=== PATIENT | male | born 2005 | race Caucasian/White ===

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

== ENCOUNTER 2025-02-06 12:25 | Outpatient (RCR) | payer MEDICAID, SELFPAY | END 2025-02-11 23:59 | disposition home or self-care (01) | LOC: SPT 12:25 | PROVIDERS: Visit Provider Orthopaedic Surgery Orthopaedic Surgery of the Spine | DX: M40.05 Postural kyphosis, thoracolumbar region (principal); R53.1 Weakness | CPT/HCPCS: 97161 ==

== ENCOUNTER 2025-02-12 05:00 | Outpatient (RCR) | payer MEDICAID, SELFPAY | END 2025-03-14 23:59 | disposition home or self-care (01) | LOC: SPT 05:00 | PROVIDERS: Visit Provider Orthopaedic Surgery Orthopaedic Surgery of the Spine | DX: M40.05 Postural kyphosis, thoracolumbar region (principal); R53.1 Weakness | CPT/HCPCS: 97110; 97150 ==

== ENCOUNTER 2025-03-15 05:00 | Outpatient (RCR) | payer MEDICAID, SELFPAY | END 2025-04-03 09:05 | disposition home or self-care (01) | LOC: SPT 05:00 | PROVIDERS: PCP Family Medicine; Visit Provider Orthopaedic Surgery Orthopaedic Surgery of the Spine | DX: M40.05 Postural kyphosis, thoracolumbar region (principal) | CPT/HCPCS: 97110 ==

== ENCOUNTER 2025-03-19 09:23 | Outpatient (CLI) | payer MEDICAID, SELFPAY ==
--- NOTE | 2025-03-19 09:28 | CT_ITS ---
WS: [id number] CT THORACIC SPINE HISTORY: KYPHOSIS TECHNIQUE: Contiguous 2.5 mm axial images are reviewed to thoracic spine. Images are reformatted in sagittal and coronal planes. All CT scans at [facility] use at least one of these dose optimization techniques: automated exposure control; mA and/or kV adjustment per patient size (includes targeted exams where dose is matched to clinical indication); or iterative reconstruction. DLP: 547.01 mGy.cm COMPARISON: MRI 03/19/2025 Mild straightening and curvature of the thoracic spine. Slight focal kyphosis near the thoracolumbar junction. There is a long RIGHT curvature of the thoracic spine. Vertebral body complement appears normal. No fractures. Facets are normally aligned. No bone destruction. Paravertebral soft tissues are normal. Visualized ribs are appropriate. CT/CT thoracic spin wo con* [id number] IMPRESSION: 1. Very mild straightening and RIGHT curvature thoracic spine. 2. No osseous abnormalities.
--- NOTE | 2025-03-19 09:28 | CT_ITS ---
WS: [id number] CT LUMBAR SPINE, noncontrast. HISTORY: KYPHOSIS/SCOLIOSIS SURGICAL PLANNING TECHNIQUE: Contiguous 2.0 mm axial imaging are performed. Sagittal and coronal reformats are submitted and reviewed. All CT scans at [facility] use at least one of these dose optimization techniques: automated exposure control; mA and/or kV adjustment per patient size (includes targeted exams where dose is matched to clinical indication); or iterative reconstruction. IV contrast: None DLP: 320.95 mGy.cm COMPARISON: None available. No obvious scoliosis of the lumbar spine. Very slight straightening of the normal lumbar lordosis. 2 mm retrolisthesis of L3 and L4. Fractures. No developmental vertebral body abnormality. Schmorl's nodes defects at L3. L1-2: Normal. L2-3: Normal. L3-4: Mild disc bulging. Mild effacement of ventral CSF and narrowing of the subarticular recesses. L4-5: Annular disc bulging. Disc contacts the ventral thecal sac extends into the subarticular recesses. Mild central, subarticular recess and bilateral foraminal stenosis. Effacement of fat in the foramen. L5-S1: Mild annular disc bulging. Effacement of fat in the foramina with bilateral foraminal stenosis. Visualized retroperitoneum is normal. CT/CT lumbar spine wo con* [id number] IMPRESSION: 1. Bilateral foraminal stenosis at L4-5 and L5-S1. 2. Mild subarticular recess stenosis at L3-4 and L4-5.
--- NOTE | 2025-03-19 09:28 | MR_ITS ---
WS: [id number] MRI LUMBAR SPINE NONCONTRAST HISTORY: KYPHOSIS,SPINAL REGION COMPARISON: None available. TECHNIQUE: Sagittal and axial multisequence imaging is submitted. Very mild straightening of the normal lumbar lordosis. Schmorl's node defect superior endplate of L3. No marrow edema or fractures. Disc spaces and vertebral body heights are well-preserved. Conus terminates normally at L1-2 disc level. L1-L2: Normal. L2-L3: Very mild encroachment upon the RIGHT subarticular recess. No significant stenosis. L3-L4: Mild annular disc bulging with flattening the ventral thecal sac and mild encroachment upon the subarticular recesses. Mild stenosis RIGHT subarticular recess with encroachment upon the traversing RIGHT L4 nerve root. Mild to moderate bilateral foraminal stenosis. L4-L5: Mild annular disc bulging encroaching upon the ventral thecal sac. Moderate to severe bilateral foraminal stenosis, LEFT greater than RIGHT. L5-S1: No central stenosis. Moderate to severe bilateral foraminal stenosis. MR/MR lumbar spine wo con* [id number] IMPRESSION: 1. No high-grade central stenosis. 2. L3 Schmorl's node defect. 3. Moderate to severe bilateral foraminal stenosis at L4-5 and L5-S1. No centr al stenosis. 4. Mild to moderate bilateral foraminal stenosis at L3-4. RIGHT subarticular r ecess encroachment upon the traversing RIGHT L4 nerve root by disc disease.
--- NOTE | 2025-03-19 09:28 | MR_ITS ---
WS: [id number] MRI THORACIC SPINE noncontrast HISTORY: KYPHOSIS,SPINAL REGION COMPARISON: CT 03/19/2025 TECHNIQUE: Multiplanar sequences are performed in sagittal and axial planes. Mild straightening of the normal thoracic kyphosis. Mild RIGHT curvature of the upper thoracic spine. Otherwise posterior alignment is normal. No marrow edema or fracture. No developmental anomalies. Signal within the cord is normal. No disc protrusions or foraminal stenosis. T1-2: Normal. T2-3: Normal. T3-4: Normal. T4-5: Normal. T5-6: Normal. T6-7: Normal. T7-8: Normal. T8-9: Normal. T9-10: Very mild RIGHT foraminal narrowing which is probably related to the scoliosis. T10-11: Mild foraminal narrowing. T11-12: No stenosis. T12-L1: Very mild annular disc bulging encroaching upon the ventral thecal sac but no stenosis. MR/MR thoracic spin wo con* [id number] IMPRESSION: 1. Very slight RIGHT curvature of the upper thoracic spine. 2. No signal abnormality within the vertebral bodies or cord. 3. Very mild disc bulging at T11-12. No central stenosis.
--- NOTE | 2025-03-19 09:28 | MR_ITS ---
WS: [id number] MRI CERVICAL SPINE NONCONTRAST HISTORY: KYPHOSIS,SPINAL REGION COMPARISON: Cervical spine radiographs 04/24/2022 Technique: Multiplanar, multisequence noncontrast imaging of the cervical spine. Very mild straightening of the normal cervical lordosis may in part be positional. Very minimal curvature of the cervical spine. Signal within the cervical cord is normal. Visualized posterior fossa is unremarkable. No segmentation anomalies. Craniocervical junction, C1 and C2 relationship, odontoid process and soft tissues are normal. C2-C3: Very small foraminal osteophytes with no stenosis. C3-C4: Normal. C4-C5: Normal. C5-C6: Very shallow LEFT paracentral disc protrusion. No cord contact. C6-C7: Normal. C7-T1: Normal. Paraspinal soft tissue are normal. MR/MR cervical spin wo con* [id number] IMPRESSION: 1. Very minimal curvature of the cervical spine. 2. No segmentation anomalies. 3. Very shallow LEFT paracentral disc protrusion at C5-6. 4. Normal signal in the cord.
== END 2025-03-19 09:24 | disposition home or self-care (01) ==
LOC: RAD 09:24
PROVIDERS: PCP Family Medicine; Visit Provider Orthopaedic Surgery Orthopaedic Surgery of the Spine
DX: M40.209 Unspecified kyphosis, site unspecified (principal); M43.8X4 Other specified deforming dorsopathies, thoracic region; M51.35 Other intervertebral disc degeneration, thoracolumbar region; M51.46 Schmorl's nodes, lumbar region; M48.061 Spinal stenosis, lumbar region without neurogenic claudication; M48.07 Spinal stenosis, lumbosacral region; M51.369 Other intervertebral disc degeneration, lumbar region without mention of lumbar back pain or lower extremity pain; R93.7 Abnormal findings on diagnostic imaging of other parts of musculoskeletal system; M51.379 Other intervertebral disc degeneration, lumbosacral region without mention of lumbar back pain or lower extremity pain
CPT/HCPCS: 72128; 72131; 72141; 72146; 72148

== ENCOUNTER 2025-05-11 12:38 | Emergency (ER) | payer MEDICAID, SELFPAY ==
--- OUTSIDE RECORDS SUMMARY | 2011-11-03 03:15 | XMS_ITS | Continuity of Care Document ---
Author Organization [facility] Address [address] [place] [address] Phone Care Team Providers Care Bit Tapper Name Role Phone Lou Saavedra DO Unavailable Unavailable Medications Medication Instructions Dosage Effective Dates (start - stop) Status Comments risperidone 0.5 mg Tab take 1 Tablet (0.5MG) by oral route 2 times every day 0.5 MG - Active clonidine 0.1 mg Tab take 0.5 tablet (0.05MG) by oral route every day at HS 0.05 MG - Active Procedures Procedure Date OFFICE/OUTPATIENT VISIT, EST URINALYSIS, AUTO, W/O SCOPE OBSERV/HOSP SAME DATE PREV VISIT, EST, AGE 5-11 OFFICE/OUTPATIENT VISIT, EST STREP A ASSAY W/OPTIC OFFICE/OUTPATIENT VISIT, EST PREV VISIT, EST, AGE 5-11 STREP A ASSAY W/OPTIC OFFICE/OUTPATIENT VISIT, EST STREP A ASSAY W/OPTIC OFFICE/OUTPATIENT VISIT, EST OFFICE/OUTPATIENT VISIT, EST OFFICE/OUTPATIENT VISIT, EST OFFICE/OUTPATIENT VISIT, EST OFFICE/OUTPATIENT VISIT, EST OFFICE/OUTPATIENT VISIT, EST OFFICE/OUTPATIENT VISIT, EST OFFICE/OUTPATIENT VISIT, EST PREV VISIT, EST, AGE 5-11 HEP A VACC, PED/ADOL, 2 DOSE PNEUMOCOCCAL VACC, 13 GAVIN IM OFFICE/OUTPATIENT VISIT, EST STREP A ASSAY W/OPTIC OFFICE/OUTPATIENT VISIT, EST OFFICE/OUTPATIENT VISIT, EST OFFICE/OUTPATIENT VISIT, EST OFFICE/OUTPATIENT VISIT, EST OFFICE/OUTPATIENT VISIT, EST OFFICE/OUTPATIENT VISIT, EST PREV VISIT, EST, AGE 1-4 MMR VACCINE, SC CHICKEN POX VACCINE, ND DTAP-IPV VACC 4-6 YR IM OFFICE/OUTPATIENT VISIT, EST Results Test Name Date and Time Measure Units Reference Range Abnormal Flag Status Comments Panel Description: Urine Culture, Routine Final Urine Culture, Routine 2 20:46:00 Final report Final [facility] Result 1 2 20:46:00 No growth Final [facility] () Advance Directives Directive Yes / No Effective Date File Name Resuscitation Not Answered N/A N/A Life Support Not Answered N/A N/A Intubation Not Answered N/A N/A Antibiotics Not Answered N/A N/A IV Fluid Support Not Answered N/A N/A Tube Feed Not Answered N/A N/A Other Directive N/A N/A WARNING:The information contained in this section is historical and is provided for information only and does not constitute a legal document or any assurance that the information is still accurate. Please verify the information with the coronel of the legal document before using it for clinical purposes. Encounters Encounter Description Practice Location Reason(s) For Visit Diagnoses Date Provider Providers Copied on Encounter OFFICE/OUTPA TIENT VISIT, EST [facility], [address] [place] [address], [id number], [place] tel:[phone] Pediatrics urinary burning (chief complaint) Painful Urination 0 2 Saavedrajonh Blake. [address] [place], [id number] . tel: [phone] OBSERV/HOSP SAME DATE [facility], [address] [place] [address], [id number], [place] tel:[phone] [facility] No Information 1 Saavedrajonh Blake. [address] [place], [id number] . tel: [phone] PREV VISIT, EST, AGE 5-11 [facility], [address] [place] [address], [id number], [place] tel:[phone] Pediatrics well visit (chief complaint) Well Child 1 Saavedrajonh Blake. [address] [place], [id number] . tel: [phone] OFFICE/OUTPA TIENT VISIT, EST [facility], [address] [place] [address], [id number], [place] tel:[phone] Pediatrics med f/u (chief complaint) ODD 1 Saavedrajonh Blake. [address] [place], [id number] . tel: [phone] OFFICE/OUTPA TIENT VISIT, EST [facility], [address] [place] [address], [id number], [place] tel:[phone] Pediatrics med f/u (chief complaint) FeverPharyngitis 1 Saavedra Lou. [address] [place], [id number] . tel: [phone] PREV VISIT, EST, AGE 5-11 [facility], [address] [place] [address], [id number], [place] tel:[phone] Pediatrics well visit (chief complaint) Well ChildADHD 1 Saavedrajonh Blake. [address] [place], [id number] . tel: [phone] OFFICE/OUTPA TIENT VISIT, [facility], [address] [place] [address], [id number], [place] tel:[phone] Pediatrics sore throat (chief complaint) Strep ThroatADHD 1 Lobb Abel. [address] [place], [id number] , [place]. tel: [phone] OFFICE/OUTPA TIENT VISIT, [facility], [address] [place] [address], [id number], [place] tel:[phone] Pediatrics medication (chief complaint) ADHDStrep Throat 1 Lobb Abel. [address] [place], [id number] , [place]. tel: [phone] OFFICE/OUTPA TIENT VISIT, [facility], [address] [place] [address], [id number], [place] tel:[phone] Pediatrics ADD/ADHD (chief complaint) ADHD 0 Lobb Abel. [address] [place], [id number] , [place]. tel: [phone] OFFICE/OUTPA TIENT VISIT, [facility], [address] [place] [address], [id number], [place] tel:[phone] Pediatrics ADD/ADHD (chief complaint) ADHDCough 0 Lobb Abel. [address] [place], [id number] , [place]. tel: [phone] OFFICE/OUTPA TIENT VISIT, [facility], [address] [place] [address], [id number], [place] tel:[phone] Pediatrics ADD/ADHD (chief complaint) Strep ThroatADHD 0 Lobb Abel. [address] [place], [id number] , [place]. tel: [phone] OFFICE/OUTPA TIENT VISIT, [facility], [address] [place] [address], [id number], [place] tel:[phone] Pediatrics behavior (chief complaint) Strep ThroatADHD 0 Lobb Abel. [address] [place], [id number] , [place]. tel: [phone] OFFICE/OUTPA TIENT VISIT, [facility], [address] [place] [address], [id number], [place] tel:[phone] Pediatrics behavior (chief complaint)s leep problems (chief complaint) Unspecified disturbance of conductNonorganic sleep disorder, unspecified 0 Lobb Abel. [address] [place], [id number] , [place]. tel: [phone] OFFICE/OUTPA TIENT VISIT, [facility], [address] [place] [address], [id number], [place] tel:[phone] Pediatrics rash (chief complaint)b ehavior (chief complaint) Tinea Cruris 0 Saavedra Lou. [address] [place], [id number] . tel: [phone] OFFICE/OUTPA TIENT VISIT, [facility], [address] [place] [address], [id number], [place] tel:[phone] Pediatrics cough (chief complaint) Otitis Media UnspecifiedAllerg ic rhinitis, cause unspecified 0 Saavedra Lou. [address] [place], [id number] . tel: [phone] PREV VISIT, [facility], AGE 5-11 [facility], [address] [place] [address], [id number], [place] tel:[phone] Pediatrics well visit (chief complaint) Well Child 0 Saavedra Lou. [address] [place], [id number] . tel:[phone] OFFICE/OUTPA TIENT VISIT, [facility], [address] [place] [address], [id number], [place] tel:[phone] Pediatrics fever (chief complaint) Foot and mouth disease 1-201 0 Saavedra Lou. [address] [place], [id number] . tel:[phone] OFFICE/OUTPA TIENT VISIT, [facility], [address] [place] [address], [id number], [place] tel:[phone] Pediatrics rash (chief complaint) Diaper or napkin rashAtopic dermatitis and related conditions 8-201 0 Saavedra Lou. [address] [place], [id number] . tel:[phone] OFFICE/OUTPA TIENT VISIT, [facility], [address] [place] [address], [id number], [place] tel:[phone] Pediatrics rash (chief complaint) Contact dermatitis and other eczema due to plants (except food) 0-201 0 Saavedra Lou. [address] [place], [id number] . tel:[phone] OFFICE/OUTPA TIENT VISIT, [facility], [address] [place] [address], [id number], [place] tel:[phone] Pediatrics ear pain since yesterday (chief complaint)r unny nose (chief complaint)c ongested (chief complaint)c ough started 2-3 days ago (chief complaint) No Information 2 2-201 0 Saavedra Lou. [address] [place], [id number] . tel:[phone] OFFICE/OUTPA TIENT VISIT, [facility], [address] [place] [address], [id number], [place] tel:[phone] Pediatrics No Information 0 8-200 9 Saavedra Lou. [address] [place], [id number] . [phone] [facility], [address] [place] [address], [id number], [place] tel:[phone] Pediatrics No Information Nov2 0-200 9 Grace Hernandez. [address] [place], [id number] . tel:[phone] OFFICE/OUTPA TIENT VISIT, [facility], [address] [place] [address], [id number], [place] tel:[phone] Pediatrics No Information 2 6-200 9 Saavedrajonh Blake. [address] [place], [id number] . tel:[phone] OFFICE/OUTPA TIENT VISIT, [facility], [address] [place] [address], [id number], [place] tel:[phone] Pediatrics No Information Jun-2 5-200 9 Keri Blake. [address] [place], [id number] . [phone] PREV VISIT, EST, AGE 1-4 [facility], [address] [place] [address], [id number], [place] tel:[phone] Pediatrics No Information Jun-1 4-200 9 Keri Blake. [address] [place], [id number] . [phone] OFFICE/OUTPA TIENT VISIT, EST [facility], [address] [place] [address], [id number], [place] tel:[phone] Pediatrics No Information 2 0-200 9 Saavedrajonh Blake. [address] [place], [id number] . tel:[phone] Family History Family Member Type Diagnosis Age At Onset Mother Problem (finding) Alive and well Immunizations Vaccine Date Status Comments Pneumococcal conjugate vaccine, 13 valent administered Source: New Immuniza tion Record Hep A (ped/adol, 2 dose) administered Yolanda rce: New Immunization Record varicella administered Source: Source Unspecified MMR administered Source: Source Unspecified polio, inactivated (IPV) administered Yolanda rce: Source Unspecified DTaP administered Source: Source Unspecified hep A (ped/adol, 2 dose) administered Yolanda rce: Source Unspecified pneumo (under 5) (PCV7) administered Sour ce: Source Unspecified HIB - unspecified administered Note: Set procedure code where blank for historical non-specific HIB entry. ; Source: Source Unspecified hep A (ped/adol, 2 dose) administered Yolanda rce: Source Unspecified MMRV administered Source: Source Unspecified pneumo (under 5) (PCV7) administered Sour ce: Source Unspecified HIB - unspecified administered Note: Set procedure code where blank for historical non-specific HIB entry. ; Source: Source Unspecified Pediarix administered Source: Source Unspecified pneumo (under 5) (PCV7) administered Sour ce: Source Unspecified HIB - unspecified administered Note: Set procedure code where blank for historical non-specific HIB entry. ; Source: Source Unspecified Pediarix administered Source: Source Unspecified DTaP administered Source: Source Unspecified pneumo (under 5) (PCV7) administered Sour ce: Source Unspecified HIB - unspecified administered Note: Set procedure code where blank for historical non-specific HIB entry. ; Source: Source Unspecified Pediarix administered Source: Source Unspecified Payers Payer name Insurance type Covered libertarian ID Authoriza tion(s) [place] [employer] [place] [id number] Social History Type Description Quantity Date Captured Comments Alcohol Use Details Unknown Caffeine Use Details Unknown Tobacco Use Status No Information Smoking Status No Information Sex Male Vital Signs Date / Time: Height Weight BMI Pulse Rate Blood Pressure Temperature Respiratory Rate Body Surface Area Head Circumference Head Circ. Percentile Wt./Cameron. Percentile BMI percentile Pulse Ox Inhaled Ox 8:17 AM 45.00 in 33.112 kg (73.00 lbs) 25.3 4 kg/m eter (2) 96 /min 100/62 mm[Hg] 97.60 F 22 /min 99 Chief Complaint And Reason For Visit From encounter dated '11/03/2011 08:15'. urinary burning (chief complaint) Reason For Referral Reason For Referral No Information Plan Of Treatment Date Type Action Status Referral Ordered: Dr. Liane Rosa. ordered History Of Present Illness Encounter Date Complaint History Of Prese nt Illness No Information Functional Status Date Functional Assessmen t No Information Instructions Date Instruction Additional Infor mation No Information Assessments Type Assessment Date No Information Patient Care Teams Name Effective Dates (start - stop) Status Members No Information
--- OUTSIDE RECORDS SUMMARY | 2018-08-08 09:01 | XMS_ITS | Continuity of Care Document ---
Author Organization [facility] Address [address] [address] Phone Care Team Providers Care Barrel Inspector Name Role Phone Shiv Real DO Unavailable Unavailable Allergies, Adverse Reactions, Alerts Substance Reaction Status Criticality apple Active No Information Medications Medication Instructions Dosage Effective Dates (start - stop) Status Comments triamcinolone acetonide 0.025 % Lotion apply by topical route 2- 3 times every day a thin layer to the affected area(s) Not Available - Active Intuniv ER 4 mg tablet,extended release take 1 Tablet by Oral route every day 1 Tablet - Active Prozac 10 mg capsule take 1 Capsule (10MG) by oral route every day 10 MG - Active Vyvanse 20 mg capsule take 2 capsule (40MG) by oral route every day in the morning 40 MG - Active Procedures Procedure Date OFFICE/OUTPATIENT VISIT, EST IMMUNE ADMIN ORAL/NASAL OFFICE/OUTPATIENT VISIT, [facility] Advance Directives Directive Yes / No Effective Date File Name No Information Encounters Encounter Description Practice Location Reason(s) For Visit Diagnoses Date Provider Providers Copied on Encounter [facility], [address], [place], [id number], [place] tel:[phone] [facility] No Information Farhan Chaney. [address], [place], [id number], [place]. tel:[phone] OFFICE/OUTPAT IENT VISIT, EST [facility], [address] [place] [address], [id number], tel:[phone] [facility] rash (chief complaint) Insect bite, nonvenomous, of other, multiple, and unspecified sites, without mention of infection Brice Aragon. [address] [place] [address], [id number], . tel:[phone] Referring Provider: Shiv Markham, [address] [place] [address], [id number] . tel:[phone] OFFICE/OUTPAT IENT VISIT, NEW [facility], [address] [place] [address], [id number], tel:[phone] [facility] flumist (chief complaint) Influenza Vaccine Farhan Chaney. [address] [place] [address], [id number], . tel:[phone] Referring Provider: Shiv Markham, [address] [place] [address], [id number] . tel:[phone] Family History Family Member Type Diagnosis Age At Onset No Information Immunizations Vaccine Date Status Comments Influenza virus vaccine, intranasal administered Source: New Immuniza tion Record Payers Payer name Insurance type Covered alliance party ID Authoriza tion(s) [place] Medicaid [place] [id number] Social History Type Description Quantity Date Captured Comments Sex Male Smoking Status No Information Chief Complaint And Reason For Visit No Information Reason For Referral Reason For Referral No Information History Of Present Illness Encounter Date Complaint History Of Prese nt Illness rash The patient pres ents for rash. This episode began on 09/05/2012. The symptom(s) are described as moderate and worse. Affected area(s) include neck, right arm(s), trunk and both leg(s), and is spreading. The describes the affected area(s) as itchy, oozing and red. Denies aggravating factors. Denies relieving factors. Associated symptoms include erythema (skin) and pruritus. Functional Status Date Functional Assessmen t No Information Instructions Date Instruction Additional Infor mation No Information Assessments Type Assessment Date No Information Patient Care Teams Name Effective Dates (start - stop) Status Members No Information
--- OUTSIDE RECORDS SUMMARY | 2024-09-29 09:00 | XMS_ITS ---
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 [address] [place] [address] 09/29/2024 Fabrice Peralta Plan Of Treatment Next Appt Details Provider Name:Rashi Bedoya, 10:30:00 AM, [address], [place], [address], Progress Notes * Silviano DHILLONDOB: [birth year] (20 yo M)Acc No.[id number]:09/29/2024 Patient: Silviano Tolbert Provider: Mony Osman DDS :2005 A ge:19 Y S ex:Male Date:09/29/2024 Address:[address], [facility] [id number] Pcp:PHYSICIAN NOT IDENTIFIED ( [facility] ) Subjective: * Chief Complaints: * S ent action to avis Billing Information: * Procedure Codes: * Electronic signature of Nelson Peralta DDS on 05/11/2025 at 12:45 PM CDT Sign off status: Pending * Provider: Mony Osman DDS Date: 11/30/2023 Generated for Hectori ng/Facasg/eTransmitting on: 0 05/11/2025 12:45 PM CDT
[2025-05-11 12:44] VITALS: BP 103/66; PULSE 94; RESP 22; TEMP 37.3; O2SAT 100
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
--- OUTSIDE RECORDS SUMMARY | 2025-05-11 12:46 | XMS_ITS | Patient Health Record ---
Author Organization [facility] Address [address] [place] [address] Care Team Providers Care Technician Support Association Name Role Phone ( [facility] ), PHYSICIAN NOT IDENTIFIED Primary Care Provider Unavailable Fabrice Peralta Unavailable [phone] Rashi Bedoya Unavailable [phone] Allergies No Known Allergies Reason For Referral No Information Medications Medication SIG (Take, Route, Frequency, Duration) Notes Start Date End Date Status DEKAs Bariatric Acti ve Benzoyl Peroxide Act becki Denta 5000 Plus Acti ve [place] Active Fluticasone Furoate Active Acetaminophen Active Quanterra Active Diphenhydramine Cit-Aspirin Active Dextroamphetamine Ac tive Fluoxetine Active EPINEPHrine Active Social History Sex Assigned At : Social History Observation Description Sex Assigned At Male Social History Social Determinants Social Info Question Answer Notes PRAPARE Date Completed/Updated: 08/12/2024 What is your current housing situation? I have h ousing Are you worried about losing your housing? No What is the highest level of school that you have finished? High school diploma or GED What is your current work situation? Oth erwise unemployed but not seeking work (ex. 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 Check all that apply I do not have problems meeting my needs Has lack of transportation k ept you from medical appointments, meetings, work or from getting things needed for daily living? No How often do you see or talk to people that you care about and feel close to? (For example: talking to friends on the phone, visiting friends or family, going to druze or club meetings) More than 5 times a week How stressed are you? Stress is when someone feels tense, nervous, anxious, or cant sleep at night because their mind is troubled Somewhat In the past year have you sp ent more than 2 nights in a row in a prison, correction, shelter center, or juvenile correctional facility? No Are you a refugee? No What country are you from? [place] Do you feel physically and e motionally safe where you currently live? Yes In the past year, have you b een afraid of your partner or ex-partner? I have not had a partner in the past year PRAPARE Score: 5 Vital Signs Heart Rate 60 /min 02/23/2025 Temperature 98.4 degrees Fahrenheit 02/23/2025 Blood pressure diastolic 58 mm Hg 02/23/2025 Blood pressure systolic 104 mm Hg 02/23/2025 Encounters Encounter Location Date Provider Diagnosis [facility] [address] [place] [address] 08/12/2024 Rashi Bedoya [facility] [address] [place] [address] 08/12/2024 Rashi Bedoya [address] [place] [address] Medical Clinic [address] [place] [facility] [address] 08/12/2024 Rashi Bedoya [facility] [address] [place] [address] 02/16/2025 Rashi Bedoya [address] [place] [address]. [facility] Clinic [address] [place] [address] 02/23/2025 Rashi Bedoya [facility] [address] [place] [address] 08/12/2024 Fabrice Peralta [address] [place] [address]. [facility] [address] [place] [address] 10/06/2024 Fabrice Peralta [address] [place] [address]. [facility] Clinic [address] [place] [address] 10/30/2024 Fabrice Peralta Plan Of Treatment Next Appt Details Provider Name:Rashi Bedoya, 10:30:00 AM, [address] [place], [address], Insurance Providers Payer Name Payer Address Payer Phone Subscriber Number Group Number Insured Name Patient Relationship to Insured Coverage Start Date Coverage End Date [facility] [employer] [address] [address] [place] [address] [id number] Silviano Morales Self - patient is the insured Medical (General) History Medical History History ICD Code alpha-gal
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
--- OUTSIDE RECORDS SUMMARY | 2025-05-11 12:46 | XMS_ITS | Encounter Summary ---
Author Organization [facility] Address [address] [facility] [place] [address] Care Team Providers Care Town Marshal Name Role Phone Ani Hallman DO Primary Care Provider [phone] Reason for Visit * Reason Comments Med Refill Encounter Details Date Type Department Care Team (Late st Contact Info) Description 05/07/2025 Refill [facility] [address] [place] [address] Ani Hallman DO [address] [place] [address] Attention deficit hyperactivity disorder (ADHD), predominantly hyperactive type; Autism spectrum disorder Social History Tobacco Use Types Packs/Day Years Used Date Smoking Tobacco: Never Passive Smoke Exposure: Never Smokeless Tobacco: Never Alcohol Use Standard Drinks/Week Comments Never 0 (1 standard drink = 0.6 oz pur e alcohol) Sex and Gender Information Value Date Recorded Sex Assigned at Not on file Legal Sex Male 10:43 AM [facility] Gender Identity Not on file Sexual Orientation Not on file documented as of this encounter Miscellaneous Notes * Telephone Encounter - Shellie Lopez LPN - 05/07/2025 3:09 PM CDT 3:09 PM 05/07/2025 Date of last visit addressing condition(s) being treated: 03/17/25 LFD 04/18/25 Date of next visit in this department: 09/17/2025 Correct Pharmacy: Yes Recent Visits Date Type Provider Dept 03/17/25 Office Visit Laurie Ruiz FNP [facility] Showing recent visits within past 400 days with a meds authorizing provider and meeting all other requirements Future Appointments Date Type Provider Dept 09/17/25 Appointment Ani Hallman DO [facility] Showing future appointments within next 400 days with a meds authorizing provider and meeting all other requirements Check and review of the [place] PDMP performed on 05/07/2025 at 3:11 PM.. No suspicious activity found. Shellie PRINCE documented in this encounter Plan of Treatment Upcoming Encounters Date Type Department Care Team (Late st Contact Info) Description 09/17/2025 8:40 AM [facility] Office Visit [facility] [address] [place] [phone] Ani Hallman DO [address] [place] [phone] documented as of this encounter Visit Diagnoses Diagnosis Attention deficit hyperactivity disorder (ADHD), predominantly hyperactive type Autism spectrum disorder Autistic disorder, current or active state documented in this encounter Care Teams Town Marshal Relationship Specialty Start Date End Date Ani Hallman DO [address] [place] [id number] PCP - General Family Practice 01/30/17 documented as of this encounter
--- NOTE | 2025-05-11 13:07 | ED_ITS ---
HPI - Nausea/Vomiting/Diarrhea 2 General: Chief complaint: Nausea/Vomiting/Diarrhea Stated complaint: 6 post op spinal fusion, dizzy, nausea, pale Time Seen by Provider: 05/11/25 12:52 History of Present Illness: 20-year-old male presents to the emergen cy room 6 days postop spinal fusion was done at [place] he was discharged yesterday postoperatively he was at the hospital for several days he did receive 1 unit of blood. He is been a little lightheaded dizzy they thought he appeared pale and they wanted him to be reevaluated so brought him to the emergency room no fever sweats chills no cough or shortness of breath no dysuria urgency or frequency no fecal incontinence or urinary retention Associated symtoms: Denies chest pain or dysuria Related Data Home Medications ?Medication ?Instructions ?Recorded ?Confirmed amphetamine 6.3 mg extended 6.3 mg PO DAILY 11/22/22 0 11/22/22 release-disintegrating 24 hr tablet (Adzenys XR-ODT) clindamycin palmitate HCl 75 mg/5 75 mg PO TID 3 11/22/22 mL oral solution fluoxetine 40 mg capsule 40 mg PO DAILY 11/22/2206/06 guanfacine 2 mg tablet 2 mg PO DAILY 11/22/2211/22 mirtazapine 45 mg tablet 45 mg PO DAILY 11/22/2206/06 Previous Rx's ?Medication ?Instructions ?Recorded hydrocodone 5 mg-acetaminophen 325 1 tab PO Q8H PRN pa in #8 tabs 11/01/22 mg tablet Allergies Allergy/AdvReac Type Severity Reaction Status Date / Time Alpha-Gal Allergy ALGY-Rash Verified 11/22/22 12:29 ([id number]-5,3-Gala Review of Systems 2 Const: Denies: fever(s) or chills Card: Denies: chest pain Resp: Denies: dyspnea GI: Denies: abdominal pain : Denies: dysuria, urinary frequency or urinary urgency Musc: Reports: back pain (Postop back pain unchanged from discharge); Denies: neck pain Skin/Breast: Denies: rash PFSH ED 2 PFSH: Medical History Autism No pertinent family history Surgical History No pertinent past surgical history Social History Smoking and tobacco/nicotine status: never used tobacco/nicotine Alcohol intake: never Substance/Drug Use: never Adopted: No Highest education level completed: 12th Grade, No Diploma Physical Exam 2 Const: COMMON NORMALS: no acute distress GENERAL APPEARANCE: cooperative ORIENTATION/CONSCIOUSNESS: Yes awake, Yes oriented to person, Yes oriented to place and Yes oriented to time HENMT: COMMON NORMALS: normocephalic, atraumatic and hearing grossly normal bilaterally HEAD & SCALP: normocephalic and atraumatic Resp: COMMON NORMALS: normal respiratory effort, No retractions, No use of accessory muscles and clear to auscultation bilaterally AUSCULTATION: clear to auscultation bilaterally Cardio: COMMON NORMALS: regular rate, regular rhythm and No murmurs present (Cardio) RATE: regular rate RHYTHM: regular rhythm GI: COMMON NORMALS: Soft to palpation and No hepatosplenomegaly present A USCULTATION: Yes normoactive bowel sounds PALPATION: Yes Soft to palpation, No Tenderness to palpation present (GI), No Guarding due to palpation present (GI) and Yes No hepatosplenomegaly present Extremity: COMMON NORMALS: normal to inspection, capillary refill normal, no clubbing, cyanosis or edema, no calf tenderness and no pedal edema Neuro: SENSORIUM/ORIENTATION: Yes oriented to person, Yes oriented to place and Yes oriented to time Skin: COMMON NORMALS: no rashes or lesions noted GENERAL SKIN EXAM: no rashes or lesions noted Course 2 Vital Signs: Vital signs: Vital Signs Temperature 99.1 F 05/11/25 12:44 Pulse Rate 99 05/11/25 14:23 Respiratory Rate 22 H 05/11/25 12:44 Blood Pressure 104/62 05/11/25 14:23 Pulse Oximetry 97 05/11/25 14:23 Oxygen Delivery Me thod Room Air 05/11/25 12:44 MDM - Nausea/Vomiting/Diarrhea Medical Decision Making Patient is not tachycardic blood pressure is mildly low. Chest x-ray is normal. He is lightheaded and dizzy states when he stands. His hemoglobin is 7.8 will bring him to the infusion center transfuse unit of blood. His white count was normal urine was otherwise negative. Medical Records I reviewed the patient's medical records. Lab Data I reviewed the patient's lab results. 05/11/25 13:22 05/11/25 13:22 Laboratory Results WBC 8.57 10^3/uL (4.5-13.0) 05/11/25 13:22 RBC 2.66 10^6/uL (3.85-5.65) L 05/11/25 13:22 Hgb 7.80 g/dL (13.2-15.6) L 05/11/25 13:22 Hct 24.8 % (37-53) L 05/11/25 13:22 MCV 93.2 fl (82-101) 05/11/25 13:22 MCH 29.3 pg (27-33) 05/11/25 13:22 MCHC 31.5 g/dL (30-55) 05/11/25 13:22 RDW 13.2 % (12.1-15.1) 05/11/25 13:22 Plt Count 203 10^3/cmm (157-399) 05/11/25 13:22 MPV 9.2 fL (7.4-10.4) 05/11/25 13:22 Neut % (Auto) 72.6 % 05/11/25 13:22 Lymph % (Auto) 14.5 % 05/11/25 13:22 [place] % (Auto) 12.1 % 05/11/25 13:22 Eos % (Auto) 0.2 % 05/11/25 13:22 Baso % (Auto) 0.1 % 05/11/25 13:22 Neut # (Auto) 6.22 10^3/uL (1.8-8.0) 05/11/25 13:22 Lymph # (Auto) 1.2 10^3/uL (1.5-6.5) L 05/11/25 13:22 [place] # (Auto) 1.0 10^3/uL (0.2-0.9) H 05/11/25 13:22 Eos # (Auto) 0.0 10^3/uL (0.0-0.8) 05/11/25 13:22 Baso # (Auto) 0.0 10^3/uL (0.0-0.1) 05/11/25 13:22 Nucleated RBC % (auto) 0 % 05/11/25 13:22 Nucleated RBCs # 0.0 /100WBC 05/11/25 13:22 Sodium 137 mmol/L (136-145) 05/11/25 13:22 Potassium 4.3 mmol/L (3.5-5.1) 05/11/25 13:22 Chloride 100 mmol/L (98-107) 05/11/25 13:22 Carbon Dioxide 26 mmol/L (22-29) 05/11/25 13:22 Anion Gap 15.3 (5-19) 05/11/25 13:22 BUN 12 mg/dL (6-20) 05/11/25 13:22 Creatinine 0.5 mg/dL (0.7-1.2) L 05/11/25 13:22 GFR Calculation 212.0 mL/min (90-130) H 05/11/25 13:22 Glucose 94 mg/dL (65-115) 05/11/25 13:22 Calculated Osmolality 284 mOsm/kg (285-295) L 05/11/25 13:22 Calcium 8.3 mg/dL (8.5-10.5) L 05/11/25 13:22 Total Bilirubin 0.5 mg/dL (0.15-1.2) 05/11/25 13:22 AST 50 U/L (0-40) H 05/11/25 13:22 ALT 44 U/L (0-41) H 05/11/25 13:22 Alkaline Phosphatase 68 U/L (40-130) 05/11/25 13:22 Total Protein 5.6 g/dL (6.6-8.7) L 05/11/25 13:22 Albumin 3.1 g/dL (3.5-5.2) L 05/11/25 13:22 Globulin 2.5 g/dL (1.3-4.6) 05/11/25 13:22 Urine Color Yellow (Yellow) 05/11/25 13:26 Urine Appearance Clear (CLEAR) 05/11/25 13:26 Urine pH 6.5 (5-7) 05/11/25 13:26 Ur Specific [place] 1.020 (1.005-1.030) 05/11/25 13:26 Urine Protein Negative (Negative) 05/11/25 13:26 Urine Glucose (UA) Negative (Normal) 05/11/25 13:26 Urine Ketones Negative (Negative) 05/11/25 13:26 Urine Blood Negative (Negative) 05/11/25 13:26 Urine Nitrate Negative (Negative) 05/11/25 13:26 Urine Bilirubin Negative (Negative) 05/11/25 13:26 Urine Urobilinogen 1.0 mg/dL (Negative) 05/11/25 13:26 Ur Leukocyte Esterase Negative (Negative) 05/11/25 13:26 Urine RBC 0-2 /hpf (0-2) 05/11/25 13:26 Urine WBC 0-5 /hpf (0-5) 05/11/25 13:26 Ur Squamous Epith Cells 0-5 /hpf (0-5) 05/11/25 13:26 Amorphous Sediment Not Reportable 05/11/25 13:26 Urine Bacteria None seen /hpf (NONE) 05/11/25 13:26 Hyaline Casts 0-4 /lpf H 05/11/25 13:26 Blood Type Cancelled 05/11/25 14:13 Rho(D) Type Cancelled 05/11/25 14:13 Antibody Screen Cancelled 05/11/25 14:13 Crossmatch See Detail 05/11/25 14:13 XR interpretation done by ED provider, pending radiology final review ED provider radiology interpretation(s): Chest x-ray negative no acute infiltrates. Patient has normal cardiac silhouette no pneumonia, no pneumothorax. Extensive spinal hardware from recent spinal fusion extends from Thoracics down through the lumbar cannot visualize a lower extent on this x-ray. Discharge Plan Discharge Patient Disposition: Home Clinical Impression: Anemia, Autism, S/P fusion of thoracic spine Condition: Stable Prescriptions: No Action guanfacine 2 mg tablet 2 mg PO DAILY Adzenys XR-ODT 6.3 mg tablet,disinteg ER biphase 24h 6.3 mg PO DAILY fluoxetine 40 mg capsule 40 mg PO DAILY mirtazapine 45 mg tablet 45 mg PO DAILY clindamycin palmitate HCl 75 mg/5 mL recon soln 75 mg PO TID hydrocodone-acetaminophen 5-325 mg tablet 1 tab PO Q8H PRN (Reason: pain) Qty: 8 0RF Discharge Orders: Discharge ED (Routine); Ordered 05/11/25 Ordered By: Manuel Ball Referrals: Ani Hallman DO [Primary Care Provider, Family Practice] Patient Instructions: Opioid Safety, Pain Management, Patient Portal & Chidi Instructions Activity Restrictions/Additional Instructions: Thank you for choosing [facility] for your healthcare needs today. It is very important that you follow up as instructed or that you return to the Emergency Department should you have concerns or if your condition changes or worsens in any way. You were seen emergency room did not concerned about lightheadedness dizziness and weakness. Your hemoglobin was 7.8 recommend you transfuse 1 unit of blood will be discharged from the emergency room to the infusion center. Print Language: Spanish Coding Level of Care Code ED Counseling Psychologist for Jennyfer Wynne
[2025-05-11 13:29] LABS: Hematocrit 24.8 % (37-53); Hemoglobin 7.80 g/dL (13.2-15.6); Mean Corpuscular HGB Conc 31.5 g/dL (30-55); Mean Corpuscular Hemoglobin 29.3 pg (27-33); Mean Corpuscular Volume 93.2 fl (82-101); Nucleated Red Blood Cells % 0 %; Platelet Count 203 10^3/cmm (157-399); Red Blood Count 2.66 10^6/uL (3.85-5.65); White Blood Count 8.57 10^3/uL (4.5-13.0)
[2025-05-11 13:41] LABS: Glucose Urine UA Negative (Normal); Nitrate Urine Negative (Negative); Specific Gravity, Urine 1.020 (1.005-1.030)
[2025-05-11 13:46] LABS: Alanine Aminotransferase 44 U/L (0-41); Albumin Level 3.1 g/dL (3.5-5.2); Alkaline Phosphatase 68 U/L (40-130); Anion Gap 15.3 (5-19); Aspartate Amino Transferase 50 U/L (0-40); Blood Urea Nitrogen 12 mg/dL (6-20); Calcium 8.3 mg/dL (8.5-10.5); Carbon Dioxide 26 mmol/L (22-29); Chloride 100 mmol/L (98-107); Creatinine Clr Calc Pharmacy 231.1400; Globulin 2.5 g/dL (1.3-4.6); Glucose 94 mg/dL (65-115); Osmolality Calculated 284 mOsm/kg (285-295); Potassium 4.3 mmol/L (3.5-5.1); Sodium 137 mmol/L (136-145); Total Protein 5.6 g/dL (6.6-8.7)
[2025-05-11 13:47] LABS: Add Urine Microscopic? YES
--- NOTE | 2025-05-11 14:00 | XRR_ITS ---
PROCEDURE INFORMATION: Exam: XR Chest Exam date and time: 05/11/2025 2:13 PM Age: 20 years old Clinical indication: Cough and dyspnea; Prior surgery; Surgery date: 6+ months; Surgery type: Spine; Weakness dyspnea; Additional info: Dyspnea/cough TECHNIQUE: Imaging protocol: Radiologic exam of the chest. Views: 1 view. COMPARISON: MR thoracic spin wo con* [id number] 03/19/2025 10:42 AM FINDINGS: Lungs: Suboptimal pulmonary expansion with associated accentuation of bronchovascular markings. No significant active pulmonary pathology. Pleural spaces: No pleural effusion. Heart/Mediastinum: Cardiomediastinal contours within normal limits. Bones/joints: Fusion hardware is present in the spine. XR/XR chest 1V portable [id number] IMPRESSION: No acute pathology.
[2025-05-11 14:23] VITALS: BP 104/62; PULSE 99; O2SAT 97
== END 2025-05-11 14:28 | disposition home or self-care (01) ==
PROVIDERS: Emergency Provider Family Medicine; PCP Family Medicine
DX: D64.9 Anemia, unspecified (principal); M43.24 Fusion of spine, thoracic region; F84.0 Autistic disorder; Z98.890 Other specified postprocedural states
CPT/HCPCS: 36415; 71045; 80053; 81001; 85025; 99284

== ENCOUNTER 2025-05-11 14:38 | Oncology outpatient (recurring) (ONCR) | payer MEDICAID, SELFPAY ==
[2025-05-11 16:30] VITALS: BP 99/65; PULSE 85; RESP 16; TEMP 37.7; O2SAT 99
[2025-05-11 16:35] VITALS: BP 99/65; PULSE 85; RESP 16; TEMP 37.7; O2SAT 99
--- NOTE | 2025-05-11 16:47 | PC.NURSE ---
1600- 20G IV placed via ultra-sound guided assist per NOAH Key with Gi lab/outpatient surgery. Patient tolerated well, due to vein complications and difficulty with IV placement. Noah Key was called in for assistance. 20G iv placed to right ac., flushed well with 2 saline, secured with cap and bioclusive device. Denies complications. Blood transfusion for 1 unit to be started as ordered per Dr. Ball. - Noah Brandt
[2025-05-11 16:50] VITALS: BP 107/71; PULSE 90; RESP 16; TEMP 37.8; O2SAT 99
--- NOTE | 2025-05-11 16:57 | PC.NURSE ---
1615- Arleth Bone, Sweet Dough Mixer with [facility], reports that patient had Lumbar fusion surgery at [facility] [place], [place] 05/05/25, but was just released yesterday and got home last night. - GEORGINA Velasco
[2025-05-11 17:05] VITALS: BP 111/71; PULSE 90; RESP 16; TEMP 37.8; O2SAT 96
[2025-05-11 17:35] VITALS: BP 104/63; PULSE 101; RESP 16; TEMP 37.8; O2SAT 99
[2025-05-11 18:30] VITALS: BP 104/65; PULSE 98; RESP 16; TEMP 37.3; O2SAT 99
== END 2025-05-14 23:59 | disposition home or self-care (01) ==
PROVIDERS: PCP Family Medicine; Visit Provider Family Medicine
DX: D64.9 Anemia, unspecified (principal); Z79.899 Other long term (current) drug therapy
CPT/HCPCS: 36430; 86850; 86900; 86920; J7050; P9016

== ENCOUNTER 2025-06-10 13:50 | Outpatient (RCR) | payer MEDICAID, SELFPAY | END 2025-06-14 23:59 | disposition home or self-care (01) | LOC: SPT 13:50 | PROVIDERS: Visit Provider Orthopaedic Surgery Orthopaedic Surgery of the Spine | DX: M40.00 Postural kyphosis, site unspecified (principal) | CPT/HCPCS: 97161 ==

== ENCOUNTER 2025-06-15 05:00 | Outpatient (RCR) | payer MEDICAID, SELFPAY | END 2025-07-14 23:59 | disposition home or self-care (01) | LOC: SPT 05:00 | PROVIDERS: Visit Provider Orthopaedic Surgery Orthopaedic Surgery of the Spine | DX: M40.00 Postural kyphosis, site unspecified (principal) | CPT/HCPCS: 97110 ==

== ENCOUNTER 2025-07-15 05:00 | Outpatient (RCR) | payer MEDICAID, SELFPAY | END 2025-08-12 10:35 | disposition home or self-care (01) | LOC: SPT 05:00 | PROVIDERS: Visit Provider Orthopaedic Surgery Orthopaedic Surgery of the Spine | DX: M40.00 Postural kyphosis, site unspecified (principal) | CPT/HCPCS: 97110 ==